=== PATIENT | male | born 1970 | race Caucasian/White ===

== ENCOUNTER 2018-03-02 02:02 | Emergency (ER) | payer BC ==
[~2018-03-02] VITALS: Ht 172.7 cm; Wt 72.6 kg
[~2018-03-02 02:02] MED LIST: AMITRIPTYLINE H25 MG PO; FOLIC ACID1 MG PO; HUMIRA20 MG/0.4; HUMIRA40 MG/0.8 SQ; MELOXICAM15 MG; METHOTREXATE2.5 MG PO; MOBIC15 MG PO; OMEPRAZOLE40 MG PO; SOMA250 MG; SOMA350 MG PO; TYLENOL WITH C1 EAC1; TYLENOL WITH C1 EAC1 PO
[2018-03-02] MEDS ORDERED: MORPHINE SULFATE 2 MG/ML SYR IV STA ×2 (02:24→04:12)
[2018-03-02] MEDS ORDERED: DICYCLOMINE HCL 20 MG/2 ML VIAL IM ONE (02:30)
[2018-03-02] MEDS ORDERED: ONDANSETRON HCL 4 MG ORAL DISINTEGRATING TAB PO ONE (02:30)
[2018-03-02 02:31] LABS: BASOPHILS # (AUTO) 0.1 (0.0-0.1); BASOPHILS % 0.5 % (0.0-1.0); EOSINOPHILS # (AUTO) 0.3 (0.0-0.4); EOSINOPHILS % 2.1 % (0.0-6.0); HEMATOCRIT 37.7 % (38.2-49.6); HEMOGLOBIN 12.6 g/dL (14.0-18.0); LYMPHOCYTES # (AUTO) 2.7 (1.0-3.2); LYMPHOCYTES % 19.6 % (18.0-39.1); MEAN CORPUSCULAR HEMOGLOBIN 29.2 pg (28-32); MEAN CORPUSCULAR HGB CONC 33.4 g/dL (31-35); MEAN CORPUSCULAR VOLUME 87.5 fL (81-99); MONOCYTES % 7.1 % (4.4-11.3); NEUTROPHILS # (AUTO) 9.8 (2.1-6.9); NEUTROPHILS % 70.4 % (38.7-80.0); PLATELET COUNT 488 x10e3/uL (140-360); RED BLOOD COUNT 4.31 x10e6/uL (4.3-5.7)
[2018-03-02 02:51] LABS: ALANINE AMINOTRANSFERASE 33 IU/L (0-55); ALBUMIN 3.8 g/dL (3.5-5.0); ALBUMIN/GLOBULIN RATIO 1.1 (0.8-2.0); ALKALINE PHOSPHATASE 48 IU/L (40-150); AMYLASE 59 U/L (25-125); ANION GAP 13.2 mmol/L (8-16); BLOOD UREA NITROGEN 10 mg/dL (7-26); BUN/CREATININE RATIO 9 (6-25); CALCIUM 9.3 mg/dL (8.4-10.2); CARBON DIOXIDE 25 mmol/L (22-29); CHLORIDE 102 mmol/L (98-107); CREATINE KINASE 407 IU/L (30-200); CREATININE, SERUM 1.12 mg/dL (0.72-1.25); EST GLOMERULAR FILTRATION RATE > 60 ML/MIN (60-); GLUCOSE 128 mg/dL (74-118); LIPASE 37 U/L (8-78); POTASSIUM 4.2 mmol/L (3.5-5.1); SODIUM 136 mmol/L (136-145)
--- NOTE | 2018-03-02 04:18 | Diagnostic Imaging Report ---
EXAM: US GALLBLADDER DATE: 03/02/2018 12:00 AM INDICATION: Right upper quadrant pain COMPARISON: None TECHNIQUE: Transverse and longitudinal chen scale and color doppler sonographic images of the upper abdomen were obtained. FINDINGS: LIVER 11.5 cm in the right midclavicular line. Slightly heterogeneous echogenicity with scattered echogenic foci, which are seen within and moving in the main portal vein. Normal contour, no masses. GALLBLADDER No stones, sludge, wall-thickening or pericholecystic fluid. Negative sonographic Hernandez's sign. BILE DUCTS No intra nor extra-hepatic biliary dilation. Common bile duct measures 0.3 cm PANCREAS: Not visualized due to overlying bowel gas. RIGHT KIDNEY: 10.6 cm Echogenicity: Normal Collecting System: No hydronephrosis Stones: None Cyst/Mass: None VESSELS: Aorta: Visualized portions are within normal size limits Inferior Vena Cava: Visualized portions are normal Main Portal Vein: 1.0 cm, hepatopetal flow with moving echogenic foci suspicious for portal venous gas FREE FLUID: None IMPRESSION: 1. Findings highly suspicious for portal venous gas. Recommend CT with IV contrast to evaluate for bowel ischemia. 2. No cholelithiasis or evidence of acute cholecystitis. Discussed with Physician: POLO RUIZ MD at 410 AM on 03/02/18. Signed by: Dr Beverley Leblanc MD on 03/02/2018 4:14 AM
[2018-03-02] MEDS ORDERED: IOPAMIDOL 370 MG/ML 200 ML INFUS..BTL INJ ONE (05:02)
[2018-03-02] MEDS ORDERED: SODIUM CHLORIDE 0.9% 50ML 50 ML ONE (05:02)
--- NOTE | 2018-03-02 05:30 | Diagnostic Imaging Report ---
EXAM: CT ABDOMEN/PELVIS W DATE: 03/02/2018 4:09 AM INDICATION: Evaluate for portal venous gas, abnormality seen on ultrasound COMPARISON: None TECHNIQUE: The abdomen and pelvis were scanned using a multidetector helical scanner. Coronal and sagittal reformations were obtained. Routine protocol performed. IV Contrast: 100 ml Isovue 370 FINDINGS: LOWER THORAX: Mild bibasilar atelectasis. LIVER/BILIARY: No masses. No ductal dilatation. GALLBLADDER: Unremarkable SPLEEN: Unremarkable PANCREAS: Unremarkable ADRENALS: No nodules KIDNEYS: Symmetric perfusion. No enhancing masses. No hydronephrosis. GI TRACT: No wall thickening or evidence of obstruction. Moderate stool is seen primarily throughout the right hemicolon. Normal appendix. VESSELS: Mild atherosclerotic changes, worse in the infrarenal abdominal aorta. Specifically the main portal vein is patent. No evidence of portal venous gas. PERITONEUM/RETROPERITONEUM: No free air or fluid LYMPH NODES: No lymphadenopathy REPRODUCTIVE ORGANS/BLADDER: Unremarkable SOFT TISSUES: Left back sebaceous cyst. BONES: No suspicious bone lesions. IMPRESSION: 1. No acute abnormalities. Specifically, no evidence of portal venous gas and bowel ischemia to correlate with ultrasound findings. 2. Moderate right colonic stool burden. Signed by: Dr Beverley Leblanc MD on 03/02/2018 5:27 AM
[2018-03-05] MEDS ORDERED: TYLENOL WITH C1 EACH PO (10:56)
[2018-03-05] MEDS ORDERED: OTEZLA PO (10:56)
== END 2018-03-02 05:50 | disposition home or self-care (01) ==
LOC: ER 02:02
DX: R10.31 Right lower quadrant pain (principal); K59.00 Constipation, unspecified; M54.9 Dorsalgia, unspecified; G89.29 Other chronic pain
CPT/HCPCS: 36415; 74177; 76705; 80053; 82150; 82550; 82553; 83690; 84484; 85025; 96374; 96376; 99284; J0500; J2270; Q9967

== ENCOUNTER → 2018-03-06 | Day surgery (SDC) | payer BC ==
[2018-03-05 10:59] LABS: BASOPHILS # (AUTO) 0.1 (0.0-0.1); BASOPHILS % 0.5 % (0.0-1.0); EOSINOPHILS # (AUTO) 0.1 (0.0-0.4); EOSINOPHILS % 1.3 % (0.0-6.0); HEMATOCRIT 38.7 % (38.2-49.6); LYMPHOCYTES # (AUTO) 2.2 (1.0-3.2); LYMPHOCYTES % 20.6 % (18.0-39.1); MEAN CORPUSCULAR HEMOGLOBIN 29.4 pg (28-32); MEAN CORPUSCULAR HGB CONC 33.6 g/dL (31-35); MEAN CORPUSCULAR VOLUME 87.6 fL (81-99); MONOCYTES # (AUTO) 0.7 (0.2-0.8); MONOCYTES % 6.6 % (4.4-11.3); NEUTROPHILS # (AUTO) 7.6 (2.1-6.9); NEUTROPHILS % 70.7 % (38.7-80.0); PLATELET COUNT 491 x10e3/uL (140-360); RED BLOOD COUNT 4.42 x10e6/uL (4.3-5.7); RED CELL DISTRIBUTION WIDTH 15.2 % (11.7-14.4)
[~2018-03-06] MED LIST changes: +FENTANYL CITRATE/PF 100MCG/2 ML INJ ONE; +GLUCAGON FOR INJ 1 MG VIAL ONE; +HYOSCYAMINE SULFATE 0.5 MG/ML AMP ONE; +LIDOCAINE HCL 2% LOCAL INJ 5 ML SDV VIAL INJ ONE; +OTEZLA PO; +PANTOPRAZOLE 40 MG 10ML VIAL ONE; +PROPOFOL IV EMULSION 10 MG/ML 50 ML VIAL ONE; +TYLENOL WITH C1 EACH PO
--- NOTE | 2018-03-06 15:45 | Operative Report ---
DATE OF PROCEDURE: March 06, 2018 REFERRING PHYSICIAN: Zenon Ervin MD PROCEDURES PERFORMED 1. Esophagogastroduodenoscopy with biopsies. 2. Colonoscopy with polypectomy and biopsies. INDICATIONS FOR EGD: Heartburn, indigestion, nausea. INDICATIONS FOR COLONOSCOPY: Colorectal cancer screening. Mother with carcinoid tumor in her colon. Change in bowel habits. MEDICATION: Patient was done under MAC. Please see anesthesiologist's note. PROCEDURE: With the patient in the left lateral decubitus position, the flexible fiberoptic Olympus gastroscope was introduced into the esophagus without any difficulty. Under direct visualization, there was some patchy erythema noted in the distal esophagus. The scope was then advanced with ease into the stomach. Mucosa overlying the antrum and the body revealed some patchy erythema and low-grade to moderate edema, and biopsies were obtained and sent to stain for H. pylori. Pylorus appeared to be of normal contour and shape. It was intubated with ease, and the scope was advanced all the way to the 2nd portion of the duodenum. The scope was then withdrawn slowly. Mucosa overlying the proximal 2nd portion and the duodenal bulb appeared to be within normal limits. The scope was then withdrawn back into the stomach and retroflexed. Mucosa overlying the fundus and the cardia appeared to be within normal limits. The scope was then straightened out. The stomach was decompressed. Scope was subsequently withdrawn. Patient tolerated the procedure well. IMPRESSION 1. Distal esophagitis. 2. Gastritis, biopsied. Biopsies sent to stain for H. pylori. PLAN: Follow up histology. Initiate Protonix 40 mg 1 p.o. a.c. q.a.m. The patient was then turned around. After adequate lubrication of the anal canal, a flexible fiberoptic Olympus colonoscope was inserted into the rectum with ease and advanced all the way to the cecum. The mucosa overlying the cecum appeared to be within normal limits. An ulcerated fold was noted in the proximal ascending colon that was biopsied. Also, an approximately 5-mm ulcer was noted in the proximal ascending colon that was biopsied. Some patchy areas of erythema and low-grade edema were noted pretty much throughout the colon. Multiple random biopsies were obtained from the left colon. A minute polyp was noted in the rectum, and that was hot biopsied. The scope was then retroflexed into the distal rectum, and small internal hemorrhoids were noted, none of which was actively bleeding. The scope was then straightened out. The rectosigmoid area as well as the distal rectal area were decompressed. Scope was subsequently withdrawn. Patient tolerated the procedure well. IMPRESSION 1. Ulcerated fold, proximal ascending colon, biopsied. 2. Ulcer, ascending colon, biopsied. 3. Patchy mild colitis, random biopsies obtained of the left colon. 4. Rectal polyp, hot biopsied. 5. Internal hemorrhoids, none actively bleeding. PLAN: Follow up histology. Check IBD panel, CRP and sed rate. Start VSL #3 DS 1 p.o. b.i.d. Timing of followup colonoscopy pending pathology report. Job#: [id number] cc:ZENON ERVIN MD
--- OUTSIDE RECORDS SUMMARY | 2018-03-07 09:57 | XMS REPORT | Continuity of Care Document ---
Author Author [facility] Organization [facility] Address [address] [place] [address] Phone Unavailable Care Team Providers Care Vertica Architect Name Role Phone ZENON BLEDSOE MD PCP Insurance Providers Guarantor Magda Riggs Address [address] [place] [address] Email [email or web address] [facility] Policy Number [id number] Subscriber's Name PapoMagda polanco Relationship 18 Self / Same As Patient Group Number [id number] Group Name [employer] Effective Date 18 Advance Directives Directive Response Recorded Date/Time Does the patient have an advance directive? No 03/21/07 8:34am If yes, is advance directive on file with [facility]? No 03/21/07 8:34am If not on file with [facility] will patient provide a copy? No 02/18/15 8:08am Do you have a Directive to Physician? No 03/02/18 2:00am Do you have a Medical Power of Hr Payroll Coordinator? No 03/02/18 2:00am Do you have an out of hospital Do Not Resuscitate Order? No 03/02/18 2:00am Do you have any special needs we should be aware of? No 03/02/18 2:00am Do you have a support person here with you today? Yes 03/02/18 2:00am Did patient receive Notice of Privacy Practices? Yes 03/02/18 2:00am Did patient receive patient rights and responsibilities? Yes 03/02/18 2:00am Problems No problem information available. Medications Current Home Medications Medication Dose Units Route Directions Days Qty Instructions Start Date Acetaminophen With Codeine (Tylenol With Codeine #4 Tablet) 1 Each Tablet Oral Every 6 Hours as needed for Pain Adalimumab (Humira) 40 Mg/0.8 Ml Kit Sub-Q Q2wks Amitriptyline Hcl 25 Mg Tablet 25 Mg Oral Bedtime 30 Tab Carisoprodol (Soma) 350 Mg Tablet 350 Mg Oral Daily as needed for Pain Folic Acid 1 Mg Tablet 1 Mg Oral Daily 30 Tab Meloxicam (Mobic) 15 Mg Tablet 15 Mg Oral Daily Methotrexate Sodium (Methotrexate) 2.5 Mg Tablet 10 Mg Oral Wkly 30 Tab Omeprazole 40 Mg Capsule.dr 40 Mg Oral Daily Past Home Medications Medication Directions Ordered Status Acetaminophen With Codeine (Tylenol With Codeine #4 Tablet) 1 Each Tablet, Discontinued Adalimumab (Humira) 20 Mg/0.4 Ml Kit, Discontinued Carisoprodol (Soma) 250 Mg Tab, Discontinued Meloxicam 15 Mg Tablet, Discontinued Methotrexate Sodium (Methotrexate) 2.5 Mg Tablet, 2.5 Mg Oral Daily Discontinued Social History No social history information available. Hospital Discharge Instructions No hospital discharge instruction information available. Plan of Care Discharge Date 03/02/18 5:50am Disposition HOME, SELF-CARE Condition at Discharge Stable Instructions/Education Provided Abdominal Pain - Adult Constipation - Adult Forms Provided Work/School Excuse Prescriptions See Medication Section Referrals ZENON BLEDSOE MD Address: [facility] [address] [place] [address] ONUR SCOTT MD Address: [address] [place] [address] [address] [place] [address] Additional Instructions/Education FOLLOW UP WITH [employer] [employer]. TAKE OVER THE COUNTER MAG CITRATE. Functional Status No functional status information available. Allergies, Adverse Reactions, Alerts No known allergies. Immunizations No immunization information available. Vital Signs Acute Vital Signs Vital Response Date/Time Height 5 ft 8 in 03/02/2018 2:21am Weight 160 lb 03/02/2018 2:21am Body Mass Index 24.3 kg/m^2 03/02/2018 2:21am Results Laboratory Results Test Name Result Units Flags Reference Collection Date/Time Result Date/ Time Comments White Blood Count 13.88 x10e3/uL H 4.8-10.8 03/02/2018 2:2017 2:31am Red Blood Count 4.31 x10e6/uL 4.3-5.7 03/02/2018 2:03/02/2018 2: 31am Hemoglobin 12.6 g/dL L 14.0-18.0 03/02/2018 2:03/02/2018 2:31am Hematocrit 37.7 % L 38.2-49.6 03/02/2018 2:03/02/2018 2:31am Mean Corpuscular Volume 87.5 fL 81-99 03/02/2018 2:03/02/2018 2: 31am Mean Corpuscular Hemoglobin 29.2 pg 28-32 03/02/2018 2:03/02/2018 2:31am Mean Corpuscular Hemoglobin Concent 33.4 g/dL 31-35 03/02/2018 2:03/02/2018 2:31am Red Cell Distribution Width 15.0 % H 11.7-14.4 03/02/2018 2:2017 2:31am Platelet Count 488 x10e3/uL H 140-360 03/02/2018 2:03/02/2018 2: 31am Neutrophils (%) (Auto) 70.4 % 38.7-80.0 03/02/2018 2:03/02/2018 2: 31am Lymphocytes (%) (Auto) 19.6 % 18.0-39.1 03/02/2018 2:03/02/2018 2: 31am Monocytes (%) (Auto) 7.1 % 4.4-11.3 03/02/2018 2:03/02/2018 2: 31am Eosinophils (%) (Auto) 2.1 % 0.0-6.0 03/02/2018 2:03/02/2018 2: 31am Basophils (%) (Auto) 0.5 % 0.0-1.0 03/02/2018 2:2003/02/2018 2:31am IM GRANULOCYTES % 0.3 % 0.0-1.0 03/02/2018 2:2003/02/2018 2:31am Neutrophils # (Auto) 9.8 H 2.1-6.9 03/02/2018 2:03/02/2018 2: 31am Lymphocytes # (Auto) 2.7 1.0-3.2 03/02/2018 2:03/02/2018 2:31am Monocytes # (Auto) 1.0 H 0.2-0.8 03/02/2018 2:03/02/2018 2:31am Eosinophils # (Auto) 0.3 0.0-0.4 03/02/2018 2:03/02/2018 2:31am Basophils # (Auto) 0.1 0.0-0.1 03/02/2018 2:03/02/2018 2:31am Absolute Immature Granulocyte (auto 0.04 x10e3/uL 0-0.1 03/02/2018 2: 2003/02/2018 2:31am Sodium Level 136 mmol/L 136-145 03/02/2018 2:2003/02/2018 2:55am Potassium Level 4.2 mmol/L 3.5-5.1 03/02/2018 2:03/02/2018 2:55am Chloride Level 102 mmol/L 98-107 03/02/2018 2:03/02/2018 2:55am Carbon Dioxide Level 25 mmol/L 22-29 03/02/2018 2:03/02/2018 2: 55am Anion Gap 13.2 mmol/L 8-16 03/02/2018 2:03/02/2018 2:55am Blood Urea Nitrogen 10 mg/dL 7-26 03/02/2018 2:03/02/2018 2:55am Creatinine 1.12 mg/dL 0.72-1.25 03/02/2018 2:2003/02/2018 2:55am BUN/Creatinine Ratio 9 6-25 03/02/2018 2:03/02/2018 2:55am Estimat Glomerular Filtration Rate > 60 ML/MIN 60- 03/02/2018 2: 2:55am Ranges were taken from the National Kidney Disease Education Program and the National Kidney Foundation literature. Reference ranges: 60 or greater: Normal 16-59 (for 3 consecutive months): Chronic kidney disease 15 or less: Kidney failure Glucose Level 128 mg/dL H 74-118 03/02/2018 2:03/02/2018 2:55am Calcium Level 9.3 mg/dL 8.4-10.2 03/02/2018 2:03/02/2018 2:55am Total Bilirubin 0.2 mg/dL 0.2-1.2 03/02/2018 2:03/02/2018 2:55am Aspartate Amino Transf (AST/SGOT) 27 IU/L 5-34 03/02/2018 2:2017 2:55am Alanine Aminotransferase (ALT/SGPT) 33 IU/L 0-55 03/02/2018 2: 2:55am Total Protein 7.4 g/dL 6.5-8.1 03/02/2018 2:03/02/2018 2:55am Albumin 3.8 g/dL 3.5-5.0 03/02/2018 2:03/02/2018 2:55am Globulin 3.6 g/dL H 2.3-3.5 03/02/2018 2:03/02/2018 2:55am Albumin/Globulin Ratio 1.1 0.8-2.0 03/02/2018 2:03/02/2018 2: 55am Alkaline Phosphatase 48 IU/L 40-150 03/02/2018 2:03/02/2018 2: 55am Creatine Kinase 407 IU/L H 30-200 03/02/2018 2:03/02/2018 2:55am Creatine Kinase MB 2.30 ng/mL 0-5.0 03/02/2018 2:03/02/2018 3: 22am Troponin I < 0.001 ng/mL 0-0.300 03/02/2018 2:03/02/2018 3:22am Amylase Level 59 U/L 25-125 03/02/2018 2:03/02/2018 2:55am Lipase 37 U/L 8-78 03/02/2018 2:20am 03/02/2018 2:55am Procedures Procedure Status Date Provider(s) US gallbladder Active 03/02/18 POLO RUIZ MD Computed tomography of abdomen and pelvis with contrast Active 03/02/18 POLO RUIZ MD Encounters Encounter Location Arrival/Admit Date Discharge/Depart Date Attending Provider Departed Emergency Room [facility] 03/02/18 2:02am 5:50am POLO RUIZ MD
--- OUTSIDE RECORDS SUMMARY | 2018-03-07 09:57 | XMS REPORT ---
Author Author [facility] Address Unknown Phone Unavailable Care Team Providers Care Contact Center Rep Name Role Phone POLO RUIZ Unavailable Unavailable Problems This patient has no known problems. Allergies, Adverse Reactions, Alerts This patient has no known allergies or adverse reactions. Medications This patient has no known medications. Results Test Description Test Time Test Comments Text Results Atomic Results Result Comments CT ABDOMEN/PELVIS W [place] [address] Patient Name: MAGDA RIGGS MR #: [id number] : 1970 Age/Sex: 47/M Req #: [id number] [facility] Physician: Ordered by: POLO RUIZ MD Report #: [id number] Location: ER Room/Bed: Procedure: [id number] CT/CT ABDOMEN/PELVIS W Exam Date: 03/02/18 Exam Time: 454 REPORT STATUS: Signed EXAM: CT ABDOMEN/ PELVIS W DATE: 03/02/2018 4:09 AM INDICATION: Evaluate for portal venous gas, abnormality seen on ultrasound COMPARISON: None TECHNIQUE: The abdomen and pelvis were scanned using a multidetector helical scanner. Coronal and sagittal reformations were obtained. Routine protocol performed. IV Contrast: 100 ml Isovue 370 FINDINGS: LOWER THORAX: Mild bibasilar atelectasis. LIVER/BILIARY: No masses. No ductal dilatation. GALLBLADDER: Unremarkable SPLEEN: Unremarkable PANCREAS: Unremarkable ADRENALS: No nodules KIDNEYS: Symmetric perfusion. No enhancing masses. No hydronephrosis. GI TRACT: No wall thickening or evidence of obstruction. Moderate stool is seen primarily throughout the right hemicolon. Normal appendix. VESSELS: Mild atherosclerotic changes, worse in the infrarenal abdominal aorta. Specifically the main portal vein is patent. No evidence of portal venous gas. PERITONEUM/RETROPERITONEUM: No free air or fluid LYMPH NODES: No lymphadenopathy REPRODUCTIVE ORGANS/BLADDER: Unremarkable SOFT TISSUES: Left back sebaceous cyst. BONES: No suspicious bone lesions. IMPRESSION: 1. No acute abnormalities. Specifically, no evidence of portal venous gas and bowel ischemia to correlate with ultrasound findings. 2. Moderate right colonic stool burden. Signed by: Dr Richelle Leblanc MD on 5:27 AM Dictated By: RICHELLE LEBLANC MD 6 Transcribed By: KORINA on 03/02/18526 COPY TO: POLO RUIZ MD US GALLBLADDER [place] [address] Patient Name: MAGDA RIGGS MR #: [id number] : 1970 Age/Sex: 47/M Req #: [id number] Adm Physician: Ordered by: POLO RUIZ MD Report #: [id number] Location: ER Room/Bed: Procedure: [id number] US/US GALLBLADDER Exam Date: Exam Time: REPORT STATUS: Signed EXAM: US GALLBLADDER DATE: 03/02/2018 12:00 AM INDICATION: Right upper quadrant pain COMPARISON: None TECHNIQUE: Transverse and longitudinal chen scale and color doppler sonographic images of the upper abdomen were obtained. FINDINGS: LIVER 11.5 cm in the right midclavicular line. Slightly heterogeneous echogenicity with scattered echogenic foci, which are seen within and moving in the main portal vein. Normal contour, no masses. GALLBLADDER No stones, sludge, wall- thickening or pericholecystic fluid. Negative sonographic Hernandez's sign. BILE DUCTS No intra nor extra-hepatic biliary dilation. Common bile duct measures 0.3 cm PANCREAS: Not visualized due to overlying bowel gas. RIGHT KIDNEY: 10.6 cm Echogenicity: Normal Collecting System: No hydronephrosis Stones: None Cyst/Mass: None VESSELS: Aorta: Visualized portions are within normal size limits Inferior Vena Cava: Visualized portions are normal Main Portal Vein: 1.0 cm, hepatopetal flow with moving echogenic foci suspicious for portal venous gas FREE FLUID: None IMPRESSION: 1. Findings highly suspicious for portal venous gas. Recommend CT with IV contrast to evaluate for bowel ischemia. 2. No cholelithiasis or evidence of acute cholecystitis. Discussed with Physician: POLO RUIZ MD at 410 AM on 03/02/18. Signed by: Dr Richelle Leblanc MD on 03/02/2018 4:14 AM Dictated By: RICHELLE LEBLANC MD 0414 Transcribed By: KORINA on 03/02/18 0414 COPY TO: POLO RUIZ MD
== END | disposition home or self-care (01) ==
LOC: OR 14:00
PROVIDERS: ATTEND Internal Medicine Gastroenterology
DX: K51.90 Ulcerative colitis, unspecified, without complications (principal); K62.1 Rectal polyp; K29.70 Gastritis, unspecified, without bleeding; K21.9 Gastro-esophageal reflux disease without esophagitis; K63.89 Other specified diseases of intestine; K59.00 Constipation, unspecified; K64.8 Other hemorrhoids; M06.9 Rheumatoid arthritis, unspecified; M45.9 Ankylosing spondylitis of unspecified sites in spine; R03.0 Elevated blood-pressure reading, without diagnosis of hypertension; F17.200 Nicotine dependence, unspecified, uncomplicated; Z01.812 Encounter for preprocedural laboratory examination; Z68.25 Body mass index [BMI] 25.0-25.9, adult; Z80.0 Family history of malignant neoplasm of digestive organs
CPT/HCPCS: 36415 ×2; 43239; 45380; 45384; 82948; 85025; 85651; 86140 ×2; 86256; 86671; J1610; J1980; J2001

== ENCOUNTER 2022-11-16 08:23 | Outpatient (RCR) | payer OTHER ==
[~2022-11-16 08:23] MED LIST changes: -FENTANYL CITRATE/PF 100MCG/2 ML INJ ONE; -GLUCAGON FOR INJ 1 MG VIAL ONE; -HYOSCYAMINE SULFATE 0.5 MG/ML AMP ONE; +LEVOTHYROXINE50 MCG PO; -LIDOCAINE HCL 2% LOCAL INJ 5 ML SDV VIAL INJ ONE; -PANTOPRAZOLE 40 MG 10ML VIAL ONE; +PRAVASTATIN SOD40 MG PO; -PROPOFOL IV EMULSION 10 MG/ML 50 ML VIAL ONE
== END 2022-12-13 ==
LOC: PT 08:23
PROVIDERS: ATTEND Neurological Surgery
DX: M50.120 Mid-cervical disc disorder, unspecified level (principal)